=== PATIENT | female | born 1965 | race Caucasian/White ===

== ENCOUNTER → 2023-11-11 08:28 | Outpatient (CLI) | payer OTHER, SELFPAY ==
--- NOTE | 2023-11-11 08:29 | DI.US.S_ITS ---
PROCEDURE: US PELVIC COMPLETE INDICATIONS: INTRAUTERINE DEVICE LOCATION X 16 YEARS TECHNIQUE: Real-time scanning was performed of the pelvic organs, with image documentation. Additional endovaginal scanning was necessary due to incomplete visualization of the adnexal and endometrial structures by transabdominal scanning. COMPARISON: None. FINDINGS: Linear echogenic intrauterine device is noted in place within the mid-fundal aspect of the endometrial canal. Uterus: Uterus is anteverted and normal in size at 6.8 x 5.5 x 3.0 cm. The myometrium is homogeneous. The endometrium measures approximately 3 mm mm combined thickness within normal limits. Ovaries: The right ovary measures approximately 2.2 x 1.3 x 0.9 cm, with a calculated ovarian volume of 1.3 cc. The left ovary measures 1.9 x 0.9 x 0.7 cm, with a calculated ovarian volume of 0.6 cc. The ovaries have a normal sonographic appearance. Less than 12 follicles can be seen in each ovary. No adnexal masses are seen. Other: No pathologic free abdominal or pelvic fluid. IMPRESSION: Intrauterine device in place within the mid-fundal aspect of the endometrial canal. Dictated by: Candido Babin M.D. on 11/11/2023 at 9:08 Approved by: Candido Babin M.D. on 11/11/2023 at 9:32
== END ==
LOC: US 08:29
PROVIDERS: PCP Family Medicine; Referring Provider Obstetrics & Gynecology; Visit Provider Obstetrics & Gynecology
DX: Z30.431 Encounter for routine checking of intrauterine contraceptive device (principal)
CPT/HCPCS: 76830; 76856